=== PATIENT | female | born 1950 | race Caucasian/White ===

== ENCOUNTER → 2025-04-06 09:21 | Outpatient (CLI) | payer OTHER, SELFPAY ==
--- NOTE | ~2025-04-06 | XR_ITS ---
EXAMINATION: [id number], 04/06/2025 9:24 CDT HISTORY: M25.562 - Pain in left knee COMPARISON: No comparisons available. Findings: No acute fracture or malalignment. Arthroplasty intact Soft tissues unremarkable. Impression: No acute fracture or malalignment. Reviewed, dictated and finalized at location P. Impression: No acute fracture or malalignment.
== END ==
LOC: EXPCRAD 09:24
PROVIDERS: PCP Nurse Practitioner Family; Visit Provider Nurse Practitioner Family
DX: M25.562 Pain in left knee (principal)
CPT/HCPCS: 73560